=== PATIENT | male | born 1995 | race Caucasian/White ===

== ENCOUNTER 2021-10-03 13:58 | Emergency (ER) | payer OTHER ==
[~2021-10-03] VITALS: Ht 177.8 cm; Wt 70.3 kg
[~2021-10-03 13:58] MED LIST: Bactroban22 GM TOP; HYDR1TAB94 PO; IBUP200; IBUP600 PO; METPHE20 PO; Pepcid20 MG PO; Prednisone20 MG PO; Vistaril25 MG PO; [UNRECOGNIZED DRUG - REMARK]
[2021-10-03] MEDS ORDERED: DICY20 PO (22:55)
== END 2021-10-03 14:45 | disposition left against medical advice (07) ==
LOC: ER 13:58
DX: R10.31 Right lower quadrant pain (principal); R11.2 Nausea with vomiting, unspecified
CPT/HCPCS: 99281

== ENCOUNTER 2022-07-30 19:38 | Emergency (ER) | payer OTHER ==
[~2022-07-30] VITALS: Ht 177.8 cm; Wt 70.3 kg
[~2022-07-30 19:38] MED LIST changes: +DICY20 PO; +IBUP800 PO; +LIDOCAINE1 EAC1 TOP; +Robaxin750 MG PO
== END 2022-07-30 22:47 | disposition left against medical advice (07) ==
LOC: ER 19:38
DX: H57.12 Ocular pain, left eye (principal); Z79.899 Other long term (current) drug therapy; Z79.52 Long term (current) use of systemic steroids; Z53.21 Procedure and treatment not carried out due to patient leaving prior to being seen by health care provider
CPT/HCPCS: 99281

== ENCOUNTER 2023-04-23 11:40 | Emergency (ER) | payer OTHER ==
[~2023-04-23] VITALS: Ht 175.3 cm; Wt 70.3 kg
[2023-04-23 11:55] VITALS: BP 137/80
== END 2023-04-23 14:07 | disposition left against medical advice (07) ==
LOC: ER 11:40
DX: R10.9 Unspecified abdominal pain (principal); Z87.440 Personal history of urinary (tract) infections; Z53.29 Procedure and treatment not carried out because of patient's decision for other reasons
CPT/HCPCS: 99281

== ENCOUNTER → 2024-01-21 | Outpatient (CLI) | payer OTHER ==
[2024-01-21 15:56] LABS: BASOPHILS ABSOLUTE AUTO 0.04 K/mm3 (0.00-0.23); BASOPHILS PERCENT AUTO 0 % (0-2); EOSINOPHILS ABSOLUTE AUTO 0.02 K/mm3 (0.00-0.68); EOSINOPHILS PERCENT AUTO 0 % (0-6); Hematocrit 37.4 % (37.0-53.0); Hemoglobin 13.1 g/dL (13.5-17.5); IMMATURE GRAN ABSOLUTE AUTO 0.07 K/mm3 (0.00-0.10); IMMATURE GRAN PERCENT AUTO 0 % (0-1); LYMPHOCYTES ABSOLUTE AUTO 1.09 K/mm3 (0.84-5.20); LYMPHOCYTES PERCENT AUTO 6 % (21-46); MONOCYTES ABSOLUTE AUTO 1.42 K/mm3 (0.16-1.47); MONOCYTES PERCENT AUTO 8 % (4-13); Mean Corpuscular Volume 86 fL (80-100); Mean Platelet Volume 8.5 fL (9.1-12.4); NEUTROPHILS ABSOLUTE AUTO 14.66 K/mm3 (1.96-9.15); NEUTROPHILS PERCENT AUTO 85 % (41-73); Platelet Count 314 K/mm3 (150-400); RDW Coefficient Variation 11.9 % (11.7-14.2); RDW Standard Deviation 37.2 fL (35.1-46.3); Red Blood Cell Count 4.36 M/mm3 (4.30-5.90)
[2024-01-21 17:51] LABS: Albumin, Blood 3.9 g/dL (3.4-5.0); Albumin/Globulin Ratio 1.1 (0.8-1.8); Bilirubin, Total 0.8 mg/dL (0.1-1.0); Bun/Creatinine Ratio 13.4 (12.0-20.0); Calcium, Blood 9.3 mg/dL (8.5-10.1); Creatinine, Blood 0.9 mg/dL (0.60-1.20); Globulin, Blood 3.4 g/dL (2.2-4.0); Potassium, Blood 3.5 mmol/L (3.5-5.5); Total Protein, Blood 7.3 g/dL (6.4-8.2)
== END ==
LOC: LAB SHORT 15:38 → LAB 15:38
PROVIDERS: Nurse Practitioner
DX: R10.9 Unspecified abdominal pain (principal)
CPT/HCPCS: 80053; 84100; 85025; 87077; 87086; 87186

== ENCOUNTER 2024-05-20 05:46 | Emergency (ER) | payer OTHER ==
[~2024-05-20] VITALS: Ht 177.8 cm; Wt 77.1 kg
[2024-05-20] MEDS ORDERED: FentaNYL Citrate 50 MCG/ML 2 ML Injection IV ONE (06:15)
[2024-05-20 06:31] LABS: BASOPHILS ABSOLUTE AUTO 0.06 K/mm3 (0.00-0.23); BASOPHILS PERCENT AUTO 1 % (0-2); EOSINOPHILS PERCENT AUTO 4 % (0-6); Hematocrit 40.4 % (37.0-53.0); Hemoglobin 14.2 g/dL (13.5-17.5); IMMATURE GRAN ABSOLUTE AUTO 0.16 K/mm3 (0.00-0.10); IMMATURE GRAN PERCENT AUTO 2 % (0-1); LYMPHOCYTES PERCENT AUTO 34 % (21-46); MONOCYTES ABSOLUTE AUTO 0.75 K/mm3 (0.16-1.47); MONOCYTES PERCENT AUTO 10 % (4-13); Mean Corpuscular HGB 30.3 pg (26.0-34.0); Mean Corpuscular HGB Conc 35.1 g/dL (31.5-36.5); Mean Corpuscular Volume 86 fL (80-100); Mean Platelet Volume 8.3 fL (9.1-12.4); NEUTROPHILS ABSOLUTE AUTO 3.69 K/mm3 (1.96-9.15); NEUTROPHILS PERCENT AUTO 49 % (41-73); Platelet Count 347 K/mm3 (150-400); RDW Coefficient Variation 12.2 % (11.7-14.2); RDW Standard Deviation 38.7 fL (35.1-46.3); Red Blood Cell Count 4.69 M/mm3 (4.30-5.90); White Blood Cell Count 7.56 K/mm3 (4.00-11.30)
[2024-05-20 07:00] LABS: Alanine Aminotransfer (ALT/SGP 37 U/L (12-78); Albumin, Blood 3.7 g/dL (3.4-5.0); Alk Phos 71 U/L (50-136); Anion Gap 10 mmol/L (3-11); Aspartate Aminotrans (AST/SGOT 28 U/L (12-37); Bilirubin, Total 0.3 mg/dL (0.1-1.0); Blood Urea Nitrogen 15 mg/dL (8-24); Bun/Creatinine Ratio 17.3 (12.0-20.0); CO2, Blood 25 mmol/L (21-32); Calcium, Blood 9.1 mg/dL (8.5-10.1); Chloride, Blood 109 mmol/L (98-108); Creatinine, Blood 0.87 mg/dL (0.60-1.20); Ethanol (Alcohol), Blood, Med <3 mg/dL; Globulin, Blood 3.6 g/dL (2.2-4.0); Glomerular Filtration Rate 120 (60-); Glucose, Blood 156 mg/dL (70-99); Potassium, Blood 3.6 mmol/L (3.5-5.5); Sodium, Blood 140 mmol/L (136-145); Total Protein, Blood 7.3 g/dL (6.4-8.2)
[2024-05-20] MEDS ORDERED: HYDROmorphone HCl/Pf 1MG SYR IV ONE ×4 (07:00→13:10)
[2024-05-20 08:31] LABS: International Normalized Ratio 1.01; Prothrombin Time Results 10.8 Sec (9.7-11.5)
[2024-05-20] MEDS ORDERED: Ketorolac Tromethamine 30mg Vial IV ONE (08:55)
[2024-05-20] MEDS ORDERED: Methocarbamol 500 MG Tab PO ONE (09:00)
[2024-05-20] MEDS ORDERED: LIDO700A20 TOP ×2 (09:23→10:55)
[2024-05-20] MEDS ORDERED: FAMO20 PO ×2 (09:23→10:55)
[2024-05-20] MEDS ORDERED: NARCAN4 M1 ×2 (09:23→10:55)
[2024-05-20] MEDS ORDERED: IBUP600 PO ×2 (09:23→10:55)
[2024-05-20] MEDS ORDERED: HYDR1TAB94 PO ×2 (09:23→10:55)
[2024-05-20] MEDS ORDERED: Robaxin750 MG PO ×2 (09:23→10:55)
[2024-05-20 14:05] VITALS: BP 135/87
== END 2024-05-20 14:14 | disposition home or self-care (01) ==
LOC: ER 05:46
PROVIDERS: Student in an Organized Health Care Education/Training Program
DX: S22.079A Unspecified fracture of T9-T10 vertebra, initial encounter for closed fracture (principal); S22.089A Unspecified fracture of T11-T12 vertebra, initial encounter for closed fracture; S32.019A Unspecified fracture of first lumbar vertebra, initial encounter for closed fracture; S92.252A Displaced fracture of navicular [scaphoid] of left foot, initial encounter for closed fracture; S90.32XA Contusion of left foot, initial encounter; S90.31XA Contusion of right foot, initial encounter; V40.5XXA Car driver injured in collision with pedestrian or animal in traffic accident, initial encounter; F17.210 Nicotine dependence, cigarettes, uncomplicated
CPT/HCPCS: 70450; 71260; 72125; 73610; 73630; 73700; 74177; 80053; 80320; 83690; 85025; 85610; 93005; 93010; 96374-59; 96375-59; 96376-59; 99284-25; A9270; J1171; J1885; J3010

== ENCOUNTER 2024-06-04 07:49 | Day surgery (SDC) | payer OTHER ==
[~2024-06-04] VITALS: Ht 175.3 cm; Wt 76.3 kg
[~2024-06-04 07:49] MED LIST changes: +FAMO20 PO; +LIDO700A20 TOP; +NARCAN4 M1
[2024-06-04] MEDS ORDERED: Ketorolac Tromethamine 30mg Vial ONE (07:57)
[2024-06-04] MEDS ORDERED: Dexamethasone Sod Phos 10 MG/ML 1ML VIAL ONE (07:57)
[2024-06-04] MEDS ORDERED: propofoL 20 ML IV ONE (07:57)
[2024-06-04] MEDS ORDERED: Bupivacaine 0.5% HCl 5 MG/ML 30MLVIAL ONE (07:57)
[2024-06-04] MEDS ORDERED: Ondansetron HCl 2 MG / ML 2ML Vial ONE (07:57)
[2024-06-04] MEDS ORDERED: Midazolam HCl 1MG / ML 2ML Vial ONE (07:59)
[2024-06-04] MEDS ORDERED: CeFAZolin Sodium 2,000 MG VIAL ONE (08:13)
[2024-06-04] MEDS ORDERED: Lactated Ringer's 1,000 ML IV ONE ×3 (08:43→13:36)
--- NOTE | 2024-06-04 09:20 | NUR ---
06/04/24 0920 HUSSAIN CARRANZA 0962 TIMEOUT FOR POPLITEAL NERVE BLOCK WITH THIS RN, ANESTHESIA, PT AND TONI MA COMPLETED AT BEDSIDE. SPO2 MONITORED T/O PROCEDURE, SATS MAINTAINED WNL W/ PT ON RA. NERVE BLOCK COMPLETED WITHOUT COMPLICATIONS.
[2024-06-04] MEDS ORDERED: FentaNYL Citrate 50 MCG/ML 2 ML Injection ONE ×2 (09:30→11:20)
[2024-06-04] MEDS ORDERED: Glycopyrrolate 0.2 MG/ML 5ML VIAL ONE (09:54)
--- NOTE | 2024-06-04 11:48 | NUR ---
06/04/24 1147 Sheba Cohen RECEIVED REPORT FROM SHAMIR GAVIRIA AT 1146
[2024-06-04 12:00] VITALS: BP 127/65
== END 2024-06-04 13:00 | disposition home or self-care (01) ==
LOC: ORSCSDS 07:49
PROVIDERS: Podiatrist Foot & Ankle Surgery
PROC: 0SGJ04Z Fusion of Left Tarsal Joint with Internal Fixation Device, Open Approach (ICD-10-PCS; principal; 2024-06-04 09:30)
DX: S92.252A Displaced fracture of navicular [scaphoid] of left foot, initial encounter for closed fracture (principal)
CPT/HCPCS: C1713; C1734; C1769; J0690; J1100; J1885; J2250; J2405; J2704; J3010; J7120

== ENCOUNTER 2024-09-04 21:55 | Emergency (ER) | payer OTHER ==
[~2024-09-04] VITALS: Ht 175.3 cm; Wt 78.9 kg
[2024-09-04 22:16] VITALS: BP 144/83
[2024-09-04] MEDS ORDERED: Penicillin G Benzathine 1.2 MMU / 2 ML SYR IM ONE (22:50)
[2024-09-04] MEDS ORDERED: Ketorolac Tromethamine 30mg Vial IM ONE (22:50)
== END 2024-09-04 23:10 | disposition home or self-care (01) ==
LOC: ER 21:55
DX: J02.0 Streptococcal pharyngitis (principal); F17.210 Nicotine dependence, cigarettes, uncomplicated
CPT/HCPCS: 87430; 96374; 96375; 99283-25; J0561; J1885

== ENCOUNTER → 2024-10-31 | Outpatient (CLI) | payer OTHER ==
[2024-10-31 10:56] LABS: BASOPHILS ABSOLUTE AUTO 0.03 K/mm3 (0.00-0.23); BASOPHILS PERCENT AUTO 1 % (0-2); EOSINOPHILS ABSOLUTE AUTO 0.18 K/mm3 (0.00-0.68); EOSINOPHILS PERCENT AUTO 3 % (0-6); Hematocrit 42.7 % (37.0-53.0); Hemoglobin 14.7 g/dL (13.5-17.5); IMMATURE GRAN ABSOLUTE AUTO 0.01 K/mm3 (0.00-0.10); IMMATURE GRAN PERCENT AUTO 0 % (0-1); LYMPHOCYTES ABSOLUTE AUTO 1.66 K/mm3 (0.84-5.20); LYMPHOCYTES PERCENT AUTO 29 % (21-46); MONOCYTES ABSOLUTE AUTO 0.56 K/mm3 (0.16-1.47); MONOCYTES PERCENT AUTO 10 % (4-13); Mean Corpuscular HGB 30.2 pg (26.0-34.0); Mean Corpuscular HGB Conc 34.4 g/dL (31.5-36.5); Mean Corpuscular Volume 88 fL (80-100); Mean Platelet Volume 8.3 fL (9.1-12.4); NEUTROPHILS ABSOLUTE AUTO 3.34 K/mm3 (1.96-9.15); NEUTROPHILS PERCENT AUTO 58 % (41-73); Platelet Count 332 K/mm3 (150-400); RDW Coefficient Variation 12.1 % (11.7-14.2); RDW Standard Deviation 38.6 fL (35.1-46.3); Red Blood Cell Count 4.87 M/mm3 (4.30-5.90); White Blood Cell Count 5.78 K/mm3 (4.00-11.30)
[2024-10-31 11:06] LABS: Albumin, Blood 4.1 g/dL (3.4-5.0); Albumin/Globulin Ratio 1.2 (0.8-1.8); Bilirubin, Total 0.7 mg/dL (0.1-1.0); Bun/Creatinine Ratio 18.5 (12.0-20.0); Calcium, Blood 9.2 mg/dL (8.5-10.1); Creatinine, Blood 0.92 mg/dL (0.60-1.20); Globulin, Blood 3.5 g/dL (2.2-4.0); Potassium, Blood 4.1 mmol/L (3.5-5.5); Total Protein, Blood 7.6 g/dL (6.4-8.2)
== END ==
LOC: LAB 10:51 → LAB SHORT 10:51
PROVIDERS: Emergency Medicine
DX: R10.9 Unspecified abdominal pain (principal)
CPT/HCPCS: 80053; 85025

== ENCOUNTER 2024-12-25 03:54 | Emergency (ER) | payer OTHER ==
[~2024-12-25] VITALS: Ht 177.8 cm; Wt 81.7 kg
[2024-12-25 04:36] LABS: BASOPHILS ABSOLUTE AUTO 0.06 K/mm3 (0.00-0.23); BASOPHILS PERCENT AUTO 1 % (0-2); EOSINOPHILS ABSOLUTE AUTO 0.28 K/mm3 (0.00-0.68); EOSINOPHILS PERCENT AUTO 4 % (0-6); Hematocrit 37.5 % (37.0-53.0); Hemoglobin 12.8 g/dL (13.5-17.5); IMMATURE GRAN ABSOLUTE AUTO 0.01 K/mm3 (0.00-0.10); IMMATURE GRAN PERCENT AUTO 0 % (0-1); LYMPHOCYTES ABSOLUTE AUTO 2.52 K/mm3 (0.84-5.20); LYMPHOCYTES PERCENT AUTO 36 % (21-46); MONOCYTES ABSOLUTE AUTO 0.61 K/mm3 (0.16-1.47); MONOCYTES PERCENT AUTO 9 % (4-13); Mean Corpuscular HGB Conc 34.1 g/dL (31.5-36.5); Mean Corpuscular Volume 88 fL (80-100); NEUTROPHILS ABSOLUTE AUTO 3.46 K/mm3 (1.96-9.15); NEUTROPHILS PERCENT AUTO 50 % (41-73); NRBC ABSOLUTE 0.00 K/mm3 (0.00-0.02); NRBC Auto 0.0 /100 WBC (0.0-0.2); Platelet Count 284 K/mm3 (150-400); RDW Coefficient Variation 11.9 % (11.7-14.2); RDW Standard Deviation 38.5 fL (35.1-46.3)
[2024-12-25 04:42] LABS: Alanine Aminotransfer (ALT/SGP 34.0 U/L (12-78); Albumin, Blood 3.8 g/dL (3.4-5.0); Albumin/Globulin Ratio 1.2 (0.8-1.8); Anion Gap 9.0 mmol/L (3-11); Aspartate Aminotrans (AST/SGOT 21.0 U/L (12-37); Bilirubin, Total 0.1 mg/dL (0.1-1.0); Blood Urea Nitrogen 17.0 mg/dL (8-24); CO2, Blood 25.0 mmol/L (21-32); Calcium, Blood 8.9 mg/dL (8.5-10.1); Chloride, Blood 108.0 mmol/L (98-108); Creatinine, Blood 0.82 mg/dL (0.60-1.20); Globulin, Blood 3.2 g/dL (2.2-4.0); Glucose, Blood 118.0 mg/dL (70-99); Potassium, Blood 3.5 mmol/L (3.5-5.5); Sodium, Blood 138.0 mmol/L (136-145); Total Protein, Blood 7.0 g/dL (6.4-8.2)
[2024-12-25 08:00] VITALS: BP 138/68
== END 2024-12-25 08:15 | disposition home or self-care (01) ==
LOC: ER 03:54
PROVIDERS: Emergency Medicine
DX: R00.2 Palpitations (principal); F17.200 Nicotine dependence, unspecified, uncomplicated
CPT/HCPCS: 71046; 80053; 83690; 84484; 85025; 93005; 93010; 99285-25

== ENCOUNTER 2025-03-21 05:57 | Emergency (ER) | payer OTHER ==
[~2025-03-21] VITALS: Ht 175.3 cm; Wt 81.7 kg
[2025-03-21 06:39] VITALS: BP 129/77
[2025-03-21 08:24] LABS: BASOPHILS ABSOLUTE AUTO 0.03 K/mm3 (0.00-0.23); BASOPHILS PERCENT AUTO 1 % (0-2); EOSINOPHILS ABSOLUTE AUTO 0.20 K/mm3 (0.00-0.68); EOSINOPHILS PERCENT AUTO 3 % (0-6); Hematocrit 38.0 % (37.0-53.0); Hemoglobin 13.2 g/dL (13.5-17.5); IMMATURE GRAN ABSOLUTE AUTO 0.02 K/mm3 (0.00-0.10); IMMATURE GRAN PERCENT AUTO 0 % (0-1); LYMPHOCYTES ABSOLUTE AUTO 1.50 K/mm3 (0.84-5.20); LYMPHOCYTES PERCENT AUTO 25 % (21-46); MONOCYTES ABSOLUTE AUTO 0.70 K/mm3 (0.16-1.47); MONOCYTES PERCENT AUTO 12 % (4-13); Mean Corpuscular HGB Conc 34.7 g/dL (31.5-36.5); Mean Corpuscular Volume 87 fL (80-100); NEUTROPHILS ABSOLUTE AUTO 3.58 K/mm3 (1.96-9.15); NEUTROPHILS PERCENT AUTO 59 % (41-73); NRBC ABSOLUTE 0.00 K/mm3 (0.00-0.02); NRBC Auto 0.0 /100 WBC (0.0-0.2); Platelet Count 281 K/mm3 (150-400); RDW Coefficient Variation 11.8 % (11.7-14.2); RDW Standard Deviation 37.7 fL (35.1-46.3)
[2025-03-21 08:36] LABS: Alanine Aminotransfer (ALT/SGP 36.0 U/L (12-78); Albumin, Blood 3.8 g/dL (3.4-5.0); Albumin/Globulin Ratio 1.2 (0.8-1.8); Anion Gap 6.0 mmol/L (3-11); Aspartate Aminotrans (AST/SGOT 15.0 U/L (12-37); Bilirubin, Total 0.4 mg/dL (0.1-1.0); Blood Urea Nitrogen 22.0 mg/dL (8-24); CO2, Blood 29.0 mmol/L (21-32); Calcium, Blood 9.1 mg/dL (8.5-10.1); Chloride, Blood 107.0 mmol/L (98-108); Creatinine, Blood 0.81 mg/dL (0.60-1.20); Globulin, Blood 3.1 g/dL (2.2-4.0); Glucose, Blood 108.0 mg/dL (70-99); Potassium, Blood 3.9 mmol/L (3.5-5.5); Sodium, Blood 138.0 mmol/L (136-145); Total Protein, Blood 6.9 g/dL (6.4-8.2)
== END 2025-03-21 10:15 | disposition home or self-care (01) ==
LOC: ER 05:57
PROVIDERS: Physician Assistant
DX: R00.2 Palpitations (principal); R53.1 Weakness; F17.210 Nicotine dependence, cigarettes, uncomplicated
CPT/HCPCS: 71046; 80053; 83690; 85025; 93005; 93010; 93246; 99284-25